=== PATIENT | female | born 1960 | race Caucasian/White ===

== ENCOUNTER 2016-11-15 21:22 | Emergency (ER) | payer MEDICARE ==
[~2016-11-15 21:22] MED LIST: ALPRAZOLAM PO; KETOPROFEN PO; LORTAB 10/500 T1 TAB PO; PAIN MED; PERCOCET10 PO; PRILOSEC PO; SKELAXIN PO
== END 2016-11-15 23:05 | disposition home or self-care (01) ==
LOC: CED 21:22
DX: I10 Essential (primary) hypertension (principal); F17.200 Nicotine dependence, unspecified, uncomplicated
CPT/HCPCS: 99282